=== PATIENT | male | born 1960 | race Caucasian/White ===

== ENCOUNTER 2017-04-26 11:46 | Emergency (ER) | payer BC ==
[2017-04-26] MEDS ORDERED: Sodium Chloride 0.9% 10 ML Syringe FLUSH PRN (11:50)
[2017-04-26] MEDS ORDERED: Clopidogrel 75 MG Tab PO ONE (11:50)
--- NOTE | 2017-04-26 11:52 | EDM.PDOC ---
ED HPI GENERAL MEDICAL PROBLEM - General Chief Complaint: Chest Pain Stated Complaint: [facility] Time Seen by Provider: 04/26/17 11:49 Source of Information: Reports: Patient History Limitations: Reports: No Limitations - History of Present Illness INITIAL COMMENTS - FREE TEXT/NARRATIVE: 56 y/o M with hx of HTN but not currently on meds and family hx of CAD with both parents having "heart attacks" in their 60's presents from outside clinic for chest pain and positive troponin. He was doing heavy work on Sunday (4 days ago) and had sudden onset of substernal severe chest pain and heaviness radiating to his R arm. He did not seek medical attention. Pain was constant since then until this morning at clinic. Pain was severe enough that he hasn't been able to sleep much for the last few nights. Denies SOB. Denies nausea/ vomiting/abd pain or other associated symptoms. Today in clinic he was given 0.4mg nitro and his chest pain resolved. States he has no chest pain whatsoever at this time. He was also given ASA 324 in clinic. Troponin at clinic was noted to be elevated at 3.3 so patient was sent here for further care. No prior history of CAD, has never had a stress test or cath. Chest Pain Score (Numeric/FACES): 0 - Related Data Allergies Allergy/AdvReac Type Severity Reaction Status Date / Time Penicillins Allergy Cannot Verified 04/26/17 11:50 Remember Home Meds: Home Meds . [No Known Home Meds] 04/26/17 [History] ED ROS GENERAL - Review of Systems Review Of Systems: See Below Constitutional: Denies: Fever HEENT: Reports: No Symptoms Respiratory: Denies: Shortness of Breath Cardiovascular: Reports: Chest Pain Endocrine: Reports: No Symptoms GI/Abdominal: Denies: Abdominal Pain : Reports: No Symptoms Musculoskeletal: Reports: Arm Pain Skin: Reports: No Symptoms Neurological: Reports: No Symptoms Psychiatric: Reports: No Symptoms Hematologic/Lymphatic: Reports: No Symptoms Immunologic: Reports: No Symptoms ED EXAM, GENERAL - Physical Exam Exam: See Below Exam Limited By: No Limitations General Appearance: Alert, WD/WN, No Apparent Distress Eye Exam: Bilateral Eye: Normal Inspection Ears: Normal External Exam Nose: Normal Inspection Throat/Mouth: Normal Inspection, Normal Oropharynx, Normal Voice, No Airway Compromise Head: Atraumatic, Normocephalic Neck: Normal Inspection, Supple Respiratory/Chest: No Respiratory Distress, Lungs Clear, Normal Breath Sounds, No Accessory Muscle Use, Chest Non-Tender Cardiovascular: Normal Peripheral Pulses, Regular Rate, Rhythm, No Edema, No Murmur GI/Abdominal: Soft, Non-Tender, No Distention. No: Rebound Back Exam: Normal Inspection Extremities: Normal Inspection Neurological: Alert, Oriented, Normal Cognition, No Motor/Sensory Deficits Psychiatric: Normal Affect, Normal Mood Skin Exam: Warm, Dry, Intact, Normal Color, No Rash Course - Vital Signs Last Recorded V/S: Last Vital Signs Temp 36.7 C 04/26/17 11:51 Pulse 80 04/26/17 12:57 Resp 18 04/26/17 12:57 BP 134/89 04/26/17 12:57 Pulse Ox 97 04/26/17 12:57 - Orders/Labs/Meds Orders: Active Orders 24 hr Category Date Time Status EKG Documentation Completion [RC] ASDIRECTED Care 04/26/17 12:03 Active Peripheral IV Care [RC] . DIRECTED Care 04/26/17 11:50 Active Peripheral IV Insertion Adult [OM.PC] Routine Oth 04/26/17 11:50 Ordered EKG 12 Lead [EK] Stat Ther 04/26/17 12:02 Ordered Labs: Laboratory Tests 04/26/17 Range/Units 11:50 APTT 26 (22-36) SECONDS Meds: Medications Discontinued Medications Generic Name Dose Route Start Last Admin Trade Name Freq PRN Reason Stop Dose Admin Clopidogrel Bisulfate 300 mg 04/26/17 11:50 04/26/17 11:57 Plavix PO 04/26/17 11:51 300 mg ONETIME ONE Administration Heparin Sodium (Porcine) 5,000 units 04/26/17 12:04 04/26/17 12:16 Heparin Sodium IVPUSH 04/26/17 12:05 5,000 units ONETIME ONE Administration Heparin Sodium/Dextrose 25,000 units in 500 mls @ 0 mls/hr 04/26/17 12:15 12:17 Heparin 25,000 Units In D5w 500 Ml IV 26 mls/hr TITRATE FIGUEROA Administration Protocol 12 UNITS/KG/HR Sodium Chloride 10 ml 04/26/17 11:50 04/26/17 11:57 Saline Flush FLUSH 10 ml ASDIRECTED PRN Administration Keep Vein Open - Re-Assessments/Exams Free Text/Narrative Re-Assessment/Exam: 04/26/17 12:23 EKG shows NSR, +q waves in leads III and aVF, T wave flattening leads V3/4/5/6. No ST elevation. No prior available for comparison. Troponin at outside clinic 3.3. CBC and chemistry there was normal with creatitine 0.9. I've ordered clopidigrel 300mg PO and heparin bolus followed by gtt. [facility] oncall called at 11:55 AM. Discussed with hospitalist who accepts patient for transfer. He has been stable and chest pain free throughout his ED stay and is stable to go by ground ambulance. Departure - Departure Time of Disposition: 12:25 Disposition: DC/Tfer to [facility] Reason for Transfer *Q: Other (need for cardiology consult) Clinical Impression: Acute coronary syndrome, Non-ST elevation RI (NSTEMI) Referrals: PCP,None [Primary Care Provider] - Forms: ED Department Discharge - My Orders Last 24 Hours: My Active Orders 04/26/17 11:50 Peripheral IV Care [RC] . DIRECTED Peripheral IV Insertion Adult [OM.PC] Routine 04/26/17 12:02 EKG 12 Lead [EK] Stat 04/26/17 12:03 EKG Documentation Completion [RC] ASDIRECTED - Assessment/Plan Last 24 Hours: My Active Orders 04/26/17 11:50 Peripheral IV Care [RC] . DIRECTED Peripheral IV Insertion Adult [OM.PC] Routine 04/26/17 12:02 EKG 12 Lead [EK] Stat 04/26/17 12:03 EKG Documentation Completion [RC] ASDIRECTED
[2017-04-26] MEDS ORDERED: Heparin Sodium 5,000 Units/ML Vial IVPUSH ONE (12:04)
[2017-04-26] MEDS ORDERED: Heparin Sodium/D5W 25,000 UNITS/500 ML BAG IV SCH (12:15)
== END 2017-04-26 13:30 | disposition critical access hospital (66) ==
LOC: JD.ED 11:46
DX: I21.4 Non-ST elevation (NSTEMI) myocardial infarction (principal); I24.9 Acute ischemic heart disease, unspecified; Z88.0 Allergy status to penicillin; R07.9 Chest pain, unspecified
CPT/HCPCS: 36415; 82553; 84484; 85379; 85730; 93005; 96365; 99285; A9270; J1644; J7050; 93010

== ENCOUNTER 2018-07-10 02:35 | Emergency (ER) | payer BC ==
--- NOTE | 2018-07-10 03:28 | EDM.PDOC ---
ED HPI GENERAL MEDICAL PROBLEM - General Chief Complaint: General Stated Complaint: ARM PAIN Time Seen by Provider: 07/10/18 02:55 Source of Information: Reports: Patient, RN Notes Reviewed - History of Present Illness INITIAL COMMENTS - FREE TEXT/NARRATIVE: 57-year-old male comes in with rash and itchiness primarily of his abdomen and face. She's had some mild rash on both arms for several weeks that has been tolerable. Or for the rash of his abdomen and erythema of his face just came on during the night. No meds or unusual exposure or ingestion that he is aware of. No rash on his back or neck. He does have some itchiness of the scalp as well. He does work in the oil field. No unusual chemical exposure or anything there that he can think of contributing to current symptoms. He felt like his throat was a bit tight when he awakened with these symptoms a short time ago but that is now gone. Current wheezing or respiratory distress. History of possible allergy to penicillin. left shoulder Pain Score (Numeric/FACES): 5 - Related Data Allergies Allergy/AdvReac Type Severity Reaction Status Date / Time Penicillins Allergy Cannot Verified 07/10/18 02:51 Remember Home Meds: Home Meds Aspirin [Alka Chewable] 81 mg PO DAILY 05/17/17 [History] Metoprolol Tartrate 75 mg PO BID 05/17/17 [History] atorvaSTATin [Lipitor] 10 mg PO BEDTIME 05/17/17 [History] Nitroglycerin [Nitrostat] 0.4 mg SL ASDIRECTED PRN 06/18/17 [History] Doxycycline [Vibramycin] 100 mg PO BID #14 tab 07/10/18 [Rx] metFORMIN [Glucophage] 500 mg PO BIDMEALS 07/10/18 [History] predniSONE [Prednisone] 40 mg PO DAILYBH #6 tablet 07/10/18 [Rx] Past Medical History HEENT History: Reports: Impaired Vision Cardiovascular History: Reports: Hypertension, [place], SOB on Exertion Respiratory History: Reports: SOB Psychiatric History: Reports: Anxiety Other Psychiatric History: insomnia Endocrine/Metabolic History: Reports: Diabetes, Type II - Past Surgical History Cardiovascular Surgical History: Reports: Coronary Artery Bypass Social & Family History - Family History Family Medical History: Noncontributory - Tobacco Use Smoking Status *Q: Never Smoker - Caffeine Use Caffeine Use: Reports: Soda - Recreational Drug Use Recreational Drug Use: No ED ROS GENERAL - Review of Systems Review Of Systems: See Below Constitutional: Denies: Fever, Chills HEENT: Reports: Throat Swelling (Mild, gone). Denies: Throat Pain Respiratory: Reports: Shortness of Breath Cardiovascular: Denies: Chest Pain (Mild, gone) GI/Abdominal: Denies: Vomiting Musculoskeletal: Reports: No Symptoms Skin: Reports: Rash, Erythema Neurological: Reports: No Symptoms ED EXAM, GENERAL - Physical Exam Exam: See Below General Appearance: Alert, No Apparent Distress Eye Exam: Bilateral Eye: PERRL Ears: Normal External Exam Nose: Normal Inspection Throat/Mouth: Normal Inspection, Normal Oropharynx Head: No: Facial Swelling Neck: Supple, Full Range of Motion Respiratory/Chest: No Respiratory Distress, Lungs Clear, Normal Breath Sounds. No: Rhonchi, Wheezing Cardiovascular: Regular Rate, Rhythm GI/Abdominal: Non-Tender Extremities: No: Pedal Edema, Leg Pain Neurological: Alert, Oriented, No Motor/Sensory Deficits Skin Exam: Warm, Dry, Rash (Erythematous rash, quite dense across midabdomen with light scattered areas of rash bilateral elbows and forearms. There is mild diffuse erythema of the lateral), Other (Back and legs are clear) Course - Vital Signs Last Recorded V/S: Last Vital Signs Temp 98.2 F 07/10/18 02:40 Pulse 71 07/10/18 02:40 Resp 18 07/10/18 02:40 BP 151/93 H 07/10/18 02:40 Pulse Ox 97 07/10/18 02:40 - Orders/Labs/Meds Meds: Medications Discontinued Medications Generic Name Dose Route Start Last Admin Trade Name Maria Luisa PRN Reason Stop Dose Admin Doxycycline Hyclate 200 mg 07/10/18 03:16 Vibramycin PO 07/10/18 03:17 ONETIME ONE Loratadine 10 mg 07/10/18 03:16 Claritin PO 07/10/18 03:17 ONETIME ONE Prednisone 40 mg 07/10/18 03:17 Prednisone PO 07/10/18 03:18 ONETIME ONE Departure - Departure Time of Disposition: 03:22 Disposition: Home, Self-Care 01 Condition: Fair Clinical Impression: Skin rash Cellulitis Qualifiers: Site of cellulitis of trunk: abdominal wall - Discharge Information Prescriptions: Doxycycline [Vibramycin] 100 mg PO BID #14 tab predniSONE [Prednisone] 40 mg PO DAILYBH #6 tablet Instructions: Cellulitis, Adult, Rash Referrals: Ximena Hurley NP [Primary Care Provider] - Forms: ED Department Discharge Additional Instructions: Doxycycline 100 mg twice daily, you have been given an initial 200 mg dose here in the ED at this time, your next dose should be 100 mg this evening. Zone 40 mg here in the ED and then continue that with an additional 40 mg dose this afternoon or evening and then 40 mg Q AM for the next 6 days. Claritin 10 mg daily for rash or itching as needed. Follow-up clinic if not better within 3-4 days as expected. Return to ED as needed if symptoms worsening in any way.
[2018-07-10] MEDS: Doxycycline 100 MG Cap PO ONE (03:33)
[2018-07-10] MEDS: Loratadine 10 MG Tab PO ONE (03:33)
[2018-07-10] MEDS: predniSONE 20 MG Tab PO ONE (03:33)
== END 2018-07-10 03:35 | disposition home or self-care (01) ==
LOC: JD.ED 02:35
DX: L03.311 Cellulitis of abdominal wall (principal); E11.9 Type 2 diabetes mellitus without complications; Z79.84 Long term (current) use of oral hypoglycemic drugs; Z79.52 Long term (current) use of systemic steroids; Z79.82 Long term (current) use of aspirin; Z88.0 Allergy status to penicillin
CPT/HCPCS: 99283; A9270